=== PATIENT | male | born 1995 | race Caucasian/White ===

== ENCOUNTER 2023-04-18 23:46 | Emergency (ER) | payer SELFPAY ==
[~2023-04-18] VITALS: Ht 165.1 cm; Wt 79.4 kg
[2023-04-19 00:08] VITALS: RESP 18
== END 2023-04-19 00:23 | disposition left against medical advice (07) ==
LOC: MED 23:46
DX: Z02.89 Encounter for other administrative examinations (principal); Z53.21 Procedure and treatment not carried out due to patient leaving prior to being seen by health care provider
CPT/HCPCS: 99281